=== PATIENT | male | born 1985 | race Caucasian/White ===

== ENCOUNTER 2018-11-14 08:38 | Emergency (ER) | payer OTHER, SELFPAY ==
--- NOTE | 2018-11-14 08:53 | DI.US.S_ITS ---
PROCEDURE: US RENAL COMPLETE INDICATIONS: GROSS HEMATURIA TECHNIQUE: Real-time scanning was performed of the kidneys and bladder, with image documentation. COMPARISON: [facility], [place], TESTICLE IMAGING, 11/11/2015, 22:08. FINDINGS: Kidneys: Kidneys are normal in size. Right kidney measures 10.4 cm long; left kidney measures 11.1 cm long. Right renal cortical thickness is 1.0 cm; left renal cortical thickness is 1.2 cm. Renal cortical echotexture is normal. No hydronephrosis or nephrolithiasis. No suspicious solid mass lesions. Bladder: Urinary bladder volume is 3.5 mL given recent void. No obvious bladder calcifications or mass. Ureteral jets are not visible. Miscellaneous: No free pelvic fluid. IMPRESSION: 1. Normal renal morphology. 2. Normal decompressed bladder morphology. Dictated by: Manjula Jaimes M.D. on 11/14/2018 at 9:31 Approved by: Manjula Jaimes M.D. on 11/14/2018 at 9:35
[2018-11-14 08:57] VITALS: BP 130/76; PULSE 63; RESP 18; TEMP 36.6; O2SAT 100; BMI 23.0
--- NOTE | 2018-11-14 09:10 | ED.MALEGU ---
HPI - Male Genitourinary General Chief complaint: Urogenital-Male Stated complaint: blood in urine Time Seen by Provider: 11/14/18 08:40 Source: patient Mode of arrival: ambulatory Limitations: no limitations History of Present Illness HPI Narrative: 33-year-old male smoker, otherwise healthy presents with a chief complaint of painless hematuria today. He denies frequency, urgency or dysuria. He has no flank pain, abdominal pain or groin pain. He denies any injuries. He denies other symptoms such as weakness, dizziness, lightheadedness or shortness of breath. he denies any history of the same. He denies the use of blood thinners Complaint: other Onset (ago): hour(s) Duration: constant Severity: mild Relieving factors: none Exacerbating factors: none Reports denies other symptoms Related Data Home Medications Medication Instructions Recorded Confirmed No Known Home Medications 11/14/18 11/14/18 Allergies Allergy/AdvReac Type Severity Reaction Status Date / Time No Known Drug Allergies Allergy Verified 11/14/18 09:02 Review of Systems Constitutional Denies chills, Denies fever(s), Denies lethargy and Denies weakness Eyes Denies change in vision, Denies eye discharge, Denies irritation and Denies loss of vision ENT Ears, Nose, Mouth, and Throat: Denies change in voice, Denies neck pain and Denies sore throat Cardiovascular Denies chest pain, Denies irregular heart rhythm, Denies lightheadedness, Denies palpitations, Denies dyspnea, Denies dyspnea on exertion and Denies orthopnea Respiratory Denies cough, Denies dyspnea, Denies dyspnea on exertion and Denies wheezing Gastrointestinal Gastrointestinal: Denies abdominal pain, Denies change in bowel habits, Denies diarrhea, Denies nausea and Denies vomiting Genitourinary Reports hematuria, Denies flank pain, Denies urinary incontinence and Denies urinary urgency Musculoskeletal Denies neck pain Integumentary/Breasts Denies pruritus, Denies erythema, Denies rash and Denies wounds Neurologic Denies confusion, Denies loss of vision and Denies weakness Psychiatric Denies anxiety, Denies confusion, Denies depression, Denies homicidal ideation and Denies suicidal ideation Endocrine Denies palpitations Hematologic/Lymphatic Denies easy bruising Allergic/Immunologic Denies wheezing [facility] Social History Smoking Status: Current some day smoker Social History Smoking Status: Current some day smoker Exam Narrative Exam Narrative: GENERAL: 33-year-old male, resting comfortably in no obvious distress. GCS 15 HEAD: Atraumatic. Normocephalic. No temporal or scalp tenderness. EYES: Pupils equal round and reactive. Extraocular motions intact. No scleral icterus. No injection or drainage. ENT: Nose without bleeding, purulent drainage or septal hematoma. Throat without erythema, tonsillar hypertrophy or exudate. Uvula midline. Airway patent. NECK: Trachea midline. No JVD or lymphadenopathy. Supple, nontender, no meningeal signs. CARDIOVASCULAR: Regular rate and rhythm without murmurs, gallops, or rubs. RESPIRATORY: Clear to auscultation. Breath sounds equal bilaterally. No wheezes, rales, or rhonchi. GASTROINTESTINAL: Abdomen soft, non-tender, nondistended. No hepato-splenomegaly, or palpable masses. No guarding. EXTREMITIES: No clubbing, cyanosis, or edema. No joint tenderness, effusion, or edema noted. BACK: Nontender without deformity or crepitance. No flank tenderness. NEURO: AOx3. SKIN: No rash or erythema. Initial Vital Signs Initial Vital Signs: Vital Signs Temperature 97.9 F 11/14/18 08:57 Pulse Rate 63 11/14/18 08:57 Respiratory Rate 18 11/14/18 08:57 Blood Pressure 130/76 11/14/18 08:57 Pulse Oximetry 100 11/14/18 08:57 Course Orders Ordered: ED Orders 11/14/18 08:53 US renal complete Stat 11/14/18 09:19 Basic Metabolic Panel Stat Complete Blood Count AUTO DIFF Stat Creatine Kinase Stat 11/14/18 09:38 Urinalysis and Microscopic Stat Vital Signs - 8 hr 11/14/18 08:57 Temperature 97.9 F Pulse Rate 63 Respiratory Rate 18 Blood Pressure 130/76 Pulse Oximetry 100 MDM - Male Genitourinary Lab Data Result diagrams: 11/14/18 09:19 11/14/18 09:19 Lab Results 11/14/18 11/14/18 11/14/18 Range/Units 08:55 09:19 09:19 WBC 4.2 L (4.5-11.0) X10^3/uL RBC 4.99 (4.5-5.9) X10^6/uL Hgb 14.6 (13.5-17.5) g/dL Hct 44.0 (41-53) % MCV 88.2 (80-100) fL MCH 29.3 (26-34) PG MCHC 33.2 (30-36) % RDW 13.4 (11.6-14.8) % Plt Count 143 L (150-400) X10^3/uL Neut % (Auto) 66.6 (50-75) % Lymph % (Auto) 18.7 L (25-40) % [place] % (Auto) 9.1 (3-14) % Eos % (Auto) 4.2 H (2-4) % Baso % (Auto) 1.4 (0-2) % Neut # (Auto) 2800 (3033-5158) /uL Lymph # (Auto) 800 L (4239-9354) /uL [place] # (Auto) 400 (0-900) /uL Eos # (Auto) 200 (0-450) /uL Baso # (Auto) 100 (0-100) /uL Sodium 139 (137-145) mmol/L Potassium 4.1 (3.4-5.1) mmol/L Chloride 102 (98-107) mmol/L Carbon Dioxide 28 (22-32) mmol/L BUN 12 (9-20) mg/dL Creatinine 0.90 (0.66-1.25) mg/dL Estimated GFR > 60.0 (>60) mL/min BUN/Creatinine Ratio 13.3 (6-22) Glucose 96 (70-100) mg/dL Calcium 9.5 (8.4-10.2) mg/dL Total Creatine Kinase 323 H (55-170) U/L Urine Color Red Urine Appearance Turbid Urine pH 6.5 (4.5-8.0) Ur Specific [place] >=1.030 H (1.000-1.035) Urine Protein 2+ H (Negative) Urine Glucose (UA) Negative (Negative) g/dL Urine Ketones Negative (NEGATIVE) Urine Occult Blood 3+ H (Negative) Urine Nitrate Negative (Negative) Urine Bilirubin Negative (NEGATIVE) Urine Urobilinogen 0.2 (0.2) E.U./dL Ur Leukocyte Esterase Negative (NEGATIVE) Urine RBC >100/hpf (0-5/HPF) Urine WBC 1-5/hpf (0-5/HPF) Calcium Oxalate Crystal Few H Urine Bacteria Many (>30) H (None) Ur Culture Indicated? Specimen cultured Imaging Data Renal US: Radiologist's impression: [address] [address] Ultrasound Report Signed Patient: Jez Gordon AMR#: [id number] : 1985Acct:[id number] Age/Sex: 33 / MDate of Service: 11/14/18 Loc: ED Accession Number: [id number] Procedure: US renal complete Ordering Provider: Lane Hernandez D.O. PROCEDURE: US RENAL COMPLETE INDICATIONS: GROSS HEMATURIA TECHNIQUE: Real-time scanning was performed of the kidneys and bladder, with image documentation. COMPARISON: [facility], [place], TESTICLE IMAGING, 11/11/2015, 22:08. FINDINGS: Kidneys: Kidneys are normal in size. Right kidney measures 10.4 cm long; left kidney measures 11.1 cm long. Right renal cortical thickness is 1.0 cm; left renal cortical thickness is 1.2 cm. Renal cortical echotexture is normal. No hydronephrosis or nephrolithiasis. No suspicious solid mass lesions. Bladder: Urinary bladder volume is 3.5 mL given recent void. No obvious bladder calcifications or mass. Ureteral jets are not visible. Miscellaneous: No free pelvic fluid. IMPRESSION: 1. Normal renal morphology. 2. Normal decompressed bladder morphology. Dictated by: Manjula Jaimes M.D. on 11/14/2018 at 9:31 Approved by: Manjula Jaimes M.D. on 11/14/2018 at 9:35 Discharge Plan Departure Patient Disposition: Home Clinical Impression: Benign hematuria Discharge Date/Time: 11/14/18 10:38 Interventions: ED Discharge Assessment Last Done: 11/14/18 10:39 Instructions: DI for Hematuria Activity Restrictions/Additional Instructions: *You have been diagnosed with [hematuria (blood in urine). We considered infection, kidney stone and other diagnoses. Your labs were unremarkable and ultrasound demonstrated no significant abnormalities] *What to do: *Follow up with your primary care provider in 2-3 days, call for an appointment. Let them know you were seen in the Emergency Department and that we ask that you be seen in follow up. They will likely refer you to urology. I have included local urology contact information *Return to ER if you should have any new, worsening or concerning symptoms Prescriptions: No Action No Known Home Medications RF: 0 Referrals: Kenisha Contreras MD [Non-Staff] -
[2018-11-14 09:28] LABS: Add Manual Diff / Slide Review NO; Basophils Absolute Auto 100 /uL (0-100); Basophils Percent Auto 1.4 % (0-2); Eosinophils Absolute Auto 200 /uL (0-450); Eosinophils Percent Auto 4.2 % (2-4); Hemoglobin 14.6 g/dL (13.5-17.5); Lymphocytes Absolute Auto 800 /uL (1100-4500); Lymphocytes Percent Auto 18.7 % (25-40); Mean Corpuscular HGB Conc 33.2 % (30-36); Mean Corpuscular Hemoglobin 29.3 PG (26-34); Mean Corpuscular Volume 88.2 fL (80-100); Monocytes Absolute Auto 400 /uL (0-900); Monocytes Percent Auto 9.1 % (3-14); Neutrophils Absolute Auto 2800 /uL (1500-7000); Neutrophils Percent Auto 66.6 % (50-75); Platelet Count 143 X10^3/uL (150-400); Red Blood Cell Count 4.99 X10^6/uL (4.5-5.9); Red Cell Distribution Width 13.4 % (11.6-14.8); White Blood Cell Count 4.2 X10^3/uL (4.5-11.0)
[2018-11-14 09:37] LABS: BUN Creatinine Ratio 13.3 (6-22); Blood Urea Nitrogen 12 mg/dL (9-20); Calcium 9.5 mg/dL (8.4-10.2); Carbon Dioxide 28 mmol/L (22-32); Chloride 102 mmol/L (98-107); Creatine Kinase 323 U/L (55-170); Estimated Glomerular Filt Rate > 60.0 mL/min (>60); Glucose 96 mg/dL (70-100); HEMOLYSIS < 15 (0-50); Potassium 4.1 mmol/L (3.4-5.1); Sodium 139 mmol/L (137-145)
--- NOTE | 2018-11-14 09:46 | ED_ITS ---
HPI - Male Genitourinary General Chief complaint: Urogenital-Male Stated complaint: blood in urine Time Seen by Provider: 11/14/18 08:40 Source: patient Mode of arrival: ambulatory Limitations: no limitations History of Present Illness HPI Narrative: 33-year-old male smoker, otherwise healthy presents with a chief complaint of painless hematuria today. He denies frequency, urgency or dysuria. He has no flank pain, abdominal pain or groin pain. He denies any injuries. He denies other symptoms such as weakness, dizziness, lightheadedness or shortness of breath. he denies any history of the same. He denies the use of blood thinners Complaint: other Onset (ago): hour(s) Duration: constant Severity: mild Relieving factors: none Exacerbating factors: none Reports denies other symptoms Related Data Home Medications Medication Instructions Recorded Confirmed No Known Home Medications 11/14/18 11/14/18 Allergies Allergy/AdvReac Type Severity Reaction Status Date / Time No Known Drug Allergies Allergy Verified 11/14/18 09:02 Review of Systems Constitutional Denies chills, Denies fever(s), Denies lethargy and Denies weakness Eyes Denies change in vision, Denies eye discharge, Denies irritation and Denies loss of vision ENT Ears, Nose, Mouth, and Throat: Denies change in voice, Denies neck pain and Denies sore throat Cardiovascular Denies chest pain, Denies irregular heart rhythm, Denies lightheadedness, Denies palpitations, Denies dyspnea, Denies dyspnea on exertion and Denies orthopnea Respiratory Denies cough, Denies dyspnea, Denies dyspnea on exertion and Denies wheezing Gastrointestinal Gastrointestinal: Denies abdominal pain, Denies change in bowel habits, Denies diarrhea, Denies nausea and Denies vomiting Genitourinary Reports hematuria, Denies flank pain, Denies urinary incontinence and Denies urinary urgency Musculoskeletal Denies neck pain Integumentary/Breasts Denies pruritus, Denies erythema, Denies rash and Denies wounds Neurologic Denies confusion, Denies loss of vision and Denies weakness Psychiatric Denies anxiety, Denies confusion, Denies depression, Denies homicidal ideation and Denies suicidal ideation Endocrine Denies palpitations Hematologic/Lymphatic Denies easy bruising Allergic/Immunologic Denies wheezing [facility] Social History Smoking Status: Current some day smoker Social History Smoking Status: Current some day smoker Exam Narrative Exam Narrative: GENERAL: 33-year-old male, resting comfortably in no obvious distress. GCS 15 HEAD: Atraumatic. Normocephalic. No temporal or scalp tenderness. EYES: Pupils equal round and reactive. Extraocular motions intact. No scleral icterus. No injection or drainage. ENT: Nose without bleeding, purulent drainage or septal hematoma. Throat without erythema, tonsillar hypertrophy or exudate. Uvula midline. Airway patent. NECK: Trachea midline. No JVD or lymphadenopathy. Supple, nontender, no meningeal signs. CARDIOVASCULAR: Regular rate and rhythm without murmurs, gallops, or rubs. RESPIRATORY: Clear to auscultation. Breath sounds equal bilaterally. No wheezes, rales, or rhonchi. GASTROINTESTINAL: Abdomen soft, non-tender, nondistended. No hepato- splenomegaly, or palpable masses. No guarding. EXTREMITIES: No clubbing, cyanosis, or edema. No joint tenderness, effusion, or edema noted. BACK: Nontender without deformity or crepitance. No flank tenderness. NEURO: AOx3. SKIN: No rash or erythema. Initial Vital Signs Initial Vital Signs: Vital Signs Temperature 97.9 F 11/14/18 08:57 Pulse Rate 63 11/14/18 08:57 Respiratory Rate 18 11/14/18 08:57 Blood Pressure 130/76 11/14/18 08:57 Pulse Oximetry 100 11/14/18 08:57 Course Orders Ordered: ED Orders 11/14/18 08:53 US renal complete Stat 11/14/18 09:19 Basic Metabolic Panel Stat Complete Blood Count AUTO DIFF Stat Creatine Kinase Stat 11/14/18 09:38 Urinalysis and Microscopic Stat Vital Signs - 8 hr 11/14/18 08:57 Temperature 97.9 F Pulse Rate 63 Respiratory Rate 18 Blood Pressure 130/76 Pulse Oximetry 100 MDM - Male Genitourinary Lab Data Result diagrams: 11/14/18 09:19 11/14/18 09:19 Lab Results 11/14/18 11/14/18 11/14/18 Range/Units 08:55 09:19 09:19 WBC 4.2 L (4.5-11.0) X10^3/uL RBC 4.99 (4.5-5.9) X10^6/uL Hgb 14.6 (13.5-17.5) g/dL Hct 44.0 (41-53) % MCV 88.2 (80-100) fL MCH 29.3 (26-34) PG MCHC 33.2 (30-36) % RDW 13.4 (11.6-14.8) % Plt Count 143 L (150-400) X10^3/uL Neut % (Auto) 66.6 (50-75) % Lymph % (Auto) 18.7 L (25-40) % [place] % (Auto) 9.1 (3-14) % Eos % (Auto) 4.2 H (2-4) % Baso % (Auto) 1.4 (0-2) % Neut # (Auto) 2800 (8689-5103) /uL Lymph # (Auto) 800 L (3471-5192) /uL [place] # (Auto) 400 (0-900) /uL Eos # (Auto) 200 (0-450) /uL Baso # (Auto) 100 (0-100) /uL Sodium 139 (137-145) mmol/L Potassium 4.1 (3.4-5.1) mmol/L Chloride 102 (98-107) mmol/L Carbon Dioxide 28 (22-32) mmol/L BUN 12 (9-20) mg/dL Creatinine 0.90 (0.66-1.25) mg/dL Estimated GFR > 60.0 (>60) mL/min BUN/Creatinine Ratio 13.3 (6-22) Glucose 96 (70-100) mg/dL Calcium 9.5 (8.4-10.2) mg/dL Total Creatine Kinase 323 H (55-170) U/L Urine Color Red Urine Appearance Turbid Urine pH 6.5 (4.5-8.0) Ur Specific [place] >=1.030 H (1.000-1.035) Urine Protein 2+ H (Negative) Urine Glucose (UA) Negative (Negative) g/dL Urine Ketones Negative (NEGATIVE) Urine Occult Blood 3+ H (Negative) Urine Nitrate Negative (Negative) Urine Bilirubin Negative (NEGATIVE) Urine Urobilinogen 0.2 (0.2) E.U./dL Ur Leukocyte Esterase Negative (NEGATIVE) Urine RBC >100/hpf (0-5/HPF) Urine WBC 1-5/hpf (0-5/HPF) Calcium Oxalate Crystal Few H Urine Bacteria Many (>30) H (None) Ur Culture Indicated? Specimen cultured Imaging Data Renal US: Radiologist's impression: [address] [address] Ultrasound Report Signed Patient: Jez Gordon AMR#: [id number] : 1985Acct:[id number] Age/Sex: 33 / MDate of Service: 11/14/18 Loc: ED Accession Number: [id number] Procedure: US renal complete Ordering Provider: Lane Hernandez D.O. PROCEDURE: US RENAL COMPLETE INDICATIONS: GROSS HEMATURIA TECHNIQUE: Real-time scanning was performed of the kidneys and bladder, with image documentation. COMPARISON: [facility], [place], TESTICLE IMAGING, 11/11/2015, 22:08. FINDINGS: Kidneys: Kidneys are normal in size. Right kidney measures 10.4 cm long; left kidney measures 11.1 cm long. Right renal cortical thickness is 1.0 cm; left renal cortical thickness is 1.2 cm. Renal cortical echotexture is normal. No hydronephrosis or nephrolithiasis. No suspicious solid mass lesions. Bladder: Urinary bladder volume is 3.5 mL given recent void. No obvious bladder calcifications or mass. Ureteral jets are not visible. Miscellaneous: No free pelvic fluid. IMPRESSION: 1. Normal renal morphology. 2. Normal decompressed bladder morphology. Dictated by: Manjula Jaimes M.D. on 11/14/2018 at 9:31 Approved by: Manjula Jaimes M.D. on 11/14/2018 at 9:35 Discharge Plan Departure Patient Disposition: Home Clinical Impression: Benign hematuria Discharge Date/Time: 11/14/18 10:38 Interventions: ED Discharge Assessment Last Done: 11/14/18 10:39 Instructions: DI for Hematuria Activity Restrictions/Additional Instructions: *You have been diagnosed with [hematuria (blood in urine). We considered infection, kidney stone and other diagnoses. Your labs were unremarkable and ultrasound demonstrated no significant abnormalities] *What to do: *Follow up with your primary care provider in 2-3 days, call for an appointment. Let them know you were seen in the Emergency Department and that we ask that you be seen in follow up. They will likely refer you to urology. I have included local urology contact information *Return to ER if you should have any new, worsening or concerning symptoms Prescriptions: No Action No Known Home Medications RF: 0 Referrals: Kenisha Contreras MD [Non-Staff] -
[2018-11-14 09:53] LABS: Appearance Urine UA TURBID; Color Urine UA RED; Occult Blood Urine UA 3+ (Negative); Specific Gravity Urine UA >=1.030 (1.000-1.035); pH Urine UA 6.5 (4.5-8.0)
[2018-11-14 10:04] LABS: Glucose Urine UA NEGATIVE (Negative); Ketones Urine UA NEGATIVE (NEGATIVE); Nitrite Urine UA NEGATIVE (Negative); Protein Urine UA 2+ (Negative)
[2018-11-14 10:05] LABS: Bilirubin Urine UA Negative (NEGATIVE); Urobilinogen Urine UA 0.2 E.U./dL (0.2)
[2018-11-14 10:06] LABS: Leukocyte Esterase Urine UA NEGATIVE (NEGATIVE)
[2018-11-14 10:10] LABS: Bacteria Urine Many (>30); Calcium Oxalate Crystals Urine Few; Culture Indicated Urine Specimen Cultured; RBC Urine >100/HPF (0-5/HPF); WBC Urine 1-5/HPF (0-5/HPF)
[2018-11-14 10:27] VITALS: BP 117/78; PULSE 50; RESP 12; O2SAT 99
[2018-11-14 10:38] VITALS: BP 132/86; PULSE 61; RESP 18; O2SAT 100
== END 2018-11-14 10:38 | disposition home or self-care (01) ==
PROVIDERS: Emergency Provider Emergency Medicine
DX: N02.9 Recurrent and persistent hematuria with unspecified morphologic changes (principal)
CPT/HCPCS: 36415; 76770; 80048; 81001; 82550; 85025; 87086; 99282; 99283